=== PATIENT | female | born 1965 | race Caucasian/White ===

== ENCOUNTER 2018-11-15 17:07 | Emergency (ER) | payer BC, OTHER ==
[~2018-11-15] VITALS: Ht 167.6 cm; Wt 52.2 kg
[2018-11-15 17:08] VITALS: BP 113/67
[2018-11-15] MEDS ORDERED: SYNTHROID88 MCG PO (17:11)
== END 2018-11-15 17:41 | disposition home or self-care (01) ==
LOC: ER 17:07
DX: M25.532 Pain in left wrist (principal); M06.9 Rheumatoid arthritis, unspecified; E06.3 Autoimmune thyroiditis